=== PATIENT | female | born 1990 | race Caucasian/White ===

== ENCOUNTER 2021-06-06 08:21 | Outpatient (CLI) | payer OTHER | END 2021-06-06 08:22 | disposition home or self-care (01) | LOC: BICULT 08:21 | PROVIDERS: ATTEND Internal Medicine Gastroenterology | DX: K58.9 Irritable bowel syndrome, unspecified (principal); R14.0 Abdominal distension (gaseous); A04.8 Other specified bacterial intestinal infections; R11.0 Nausea; R10.9 Unspecified abdominal pain | CPT/HCPCS: 76700 ==